=== PATIENT | female | born 1945 | race Caucasian/White ===

== ENCOUNTER 2017-08-20 14:51 | Emergency (ER) | payer MEDICARE, SELFPAY ==
[2017-08-20 14:53] VITALS: BP 118/63; PULSE 71; RESP 18; TEMP 36.4; O2SAT 98; BMI 49.9
--- NOTE | 2017-08-20 15:12 | ED.VISSUMM ---
- ER Visit Summary Date of Service: 08/20/17 Chief Complaint: Nausea vomiting History of Present Illness: The patient is a 72 F nausea and vomiting since yesterday evening. No hematemesis. States able to sleep, however she wakes up feels sick. Denies any abdominal pain. No fevers. Positive flatus. Normal BM this morning. No urinary symptoms. Has tolerated some oral fluids. States had abdominal hernia repair in the past. Only takes medications for blood pressure. Physical Examination: General: Alert and oriented ?3, no acute distress HEENT: Normocephalic, atraumatic. Moist mucosa membranes Neck: supple, nontender. Cardiovascular: Regular rate and rhythm, no murmurs Respiratory: Normal breath sounds, symmetric, no distress Abdomen: Soft, nontender, nondistended, no guarding or rebound. Extremities: Nontender, no edema, pulses intact ?4 Neuro: no focal neurological deficits. Test Results: [] Emergency Department Course and Treatment: Patient vital signs stable, nonsurgical abdomen. Moist mucosa membranes. Isolated vomiting. Treated Zofran ODT, monitored. She is able to drink some clear fluids, states she did not feel the urge of wanting to drink more. There is no pain. Patient states she feels well enough to go home. She will be written for prescription prescription of Zofran. Discussed if he develops pain, decrease or no flatus and continued recurrent vomiting to return for reevaluation. Patient understands and agrees with plan. All questions were answered. Treatment Plan: [] Disposition: Discharge Impression: Vomiting This note was generated with [employer] dictation software. It may contain incorrect words, spelling, and punctuation that were not noted in review of the chart prior to signing ED Disposition - Plan for ED Patient: Disposition: Home or Assisted Living Chief Complaint: Nausea/Vomiting Diagnosis: Vomiting Instructions: ED Diet Vomiting Diarrhea Prescriptions: Ondansetron [Zofran Odt] 4 mg PO Q8H PRN PRN #10 tablet PRN Reason: Nausea Referrals: Care Physician,No Primary [NON-STAFF] - Additional Instructions: Follow-up with the health clinic. Return if any worsening symptoms.
[2017-08-20] MEDS: Ondansetron ODT 4 MG Tablet 8 MG PO (15:17)
[2017-08-20 16:05] VITALS: BP 138/79; PULSE 69; RESP 16; O2SAT 98
== END 2017-08-20 16:05 | disposition home or self-care (01) ==
PROVIDERS: Emergency Provider Emergency Medicine; Family Provider Family Medicine; PCP Family Medicine
DX: R11.2 Nausea with vomiting, unspecified (principal); I10 Essential (primary) hypertension
CPT/HCPCS: 99283